=== PATIENT | female | born 1950 | race Caucasian/White ===

== ENCOUNTER 2016-10-04 20:31 | Inpatient (IN) ==
--- NOTE | 2016-10-04 20:43 | Emergency Department Note ---
Disposition Clinical Impression: Gastroenteritis, Dehydration, Near syncope Disposition: Admitted As Inpatient Condition: Fair Referrals: Ghulam Morrow MD [Primary Care Provider] - Forms: ED Satisfaction Letter Weakness HPI - General Chief complaint: ED Nausea/Vomiting/Diarrhea Stated complaint: general weakness, nausea Time Seen by Provider: 10/04/16 20:39 Source: patient, EMS Mode of arrival: EMS Limitations: no limitations Nursing Notes Reviewed: Yes Vital Signs Reviewed: Yes - History of Present Illness HPI Narrative: Patient reports she started this afternoon with some generalized weakness. She indicated she had 2 episodes of diarrhea without blood or mucus. She also has not had abdominal pain. At time of arrival here she is started persistent vomiting of food emesis. She reports a recent history of a urinary tract infection for which she started on a new antibiotic today. She denies any other change in her medicines or any reaction to medication approximating her current addition. She does report chills without fever. She denies chest pain , cough or shortness of breath. She has a generalized weakness and malaise but no dizziness. She denies any ill exposures or concerns for food borne illness. Her Accu-Chek is 109. Pt Subjective Complaint: generalized weakness/fatigue Onset (ago): hour(s) Duration: gradually worsening Location: generalized Migration: none Pain Severity: none Pain Scale: 0 Improves with: none Worsens with: none Context: new medication Associated symptoms: Reports: fever/chills (Chills), loss of appetite, nausea/ vomiting, other (Diarrhea). Denies: chest pain, confusion, dark stools, diaphoresis, dysuria, easy bruising, headaches, myalgias, rash, shortness of breath, syncope - Related Data Home Medications Medication Instructions Recorded Confirmed Citalopram [CeleXA] 20 mg PO DAILY 10/04/16 10/04/16 Lisinopril/Hydrochlorothiazide 1 each PO DAILY 10/04/16 10/04/16 [Zestoretic 10-12.5 mg Tablet] Metformin [Glucophage] 500 mg PO BID 10/04/16 10/04/16 Nitrofurantoin Macrocrystal 100 mg PO BID 10/04/16 10/04/16 [Nitrofurantoin] Omeprazole 20 mg PO DAILY 10/04/16 10/04/16 Rosuvastatin [Crestor] 20 mg PO 3XW 10/04/16 10/04/16 Allergies Allergy/AdvReac Type Severity Reaction Status Date / Time latex Allergy Hives Verified 10/04/16 20:33 Sulfa (Sulfonamide Allergy Hives Verified 10/04/16 20:33 Antibiotics) All systems ED: reviewed and negative except as stated. Past Medical History - Past Medical History Attestation: Yes The following information was validated with the patient. Source: patient, old records reviewed, nursing notes reviewed Medical history: Reports: diabetes, hyperlipidemia, hypertension Surgical history: Reports: no surgical history - Social History Smoking Status: Never smoker Alcohol use: Reports: none Drug use: Reports: none Physical Exam - General Limitations: physical limitation (Persistent vomiting) General appearance: alert, in distress - Head Head exam: atraumatic, normocephalic, normal inspection - Eye Eye exam: Present: normal appearance, PERRL, EOMI. Absent: scleral icterus, conjunctival injection - ENT ENT exam: normal exam, normal oropharynx, mucous membranes moist - Neck Neck exam: Present: normal inspection, full ROM, trachea midline - Chest Chest inspection: Present: normal inspection, symmetric chest wall rise - Respiratory Respiratory exam: Present: normal lung sounds bilaterally. Absent: respiratory distress, wheezes, prolonged expiratory phase - Cardiovascular Cardiovascular exam: Present: regular rate, normal rhythm, tachycardia, normal heart sounds - Abdominal Exam Abdominal exam: Present: soft, Non-Tender, normal bowel sounds. Absent: tenderness, distention, guarding, rebound, rigidity - Extremities Exam Extremities exam: Present: normal inspection, full ROM, normal capillary refill. Absent: tenderness, pedal edema - Expanded Lower Extremity Exam Neurovascular/Tendon exam: Present: normal capillary refill. Absent: motor deficit, sensory deficit, tendon deficit Gait: not tested/not observed - Back Exam Back exam: Present: normal inspection, full ROM. Absent: tenderness, CVA tenderness (R), CVA tenderness (L) - Neurological Exam Neurological exam: Present: alert, oriented X3. Absent: motor sensory deficit - Psychiatric Psychiatric exam: Present: normal affect, normal mood - Skin Skin exam: Present: warm, dry, intact, normal color. Absent: diaphoresis, pallor Course Course Narrative: 2200: All lab and EKG has been discussed with the patient and family. She still feels too weak to get up or to think about going home. Her heart rate is remaining at about 115 220. She is saturating well at 97%, respiratory rate is 16 and a blood pressure of 126/74 at rest. She has not been having further vomiting. I discussed care with Dr. Gomes who is agreeable with continued hydration for the night intravenously. Verbal orders have been obtained for her observation. Vital Signs Temperature 98.2 F 10/04/16 20:33 Pulse Rate 110 10/04/16 20:33 Respiratory Rate 21 10/04/16 20:33 Blood Pressure 122/66 10/04/16 20:33 O2 Sat by Pulse Oximetry 99 10/04/16 20:33 Temperature 98.2 F 10/04/16 20:34 Pulse Rate 118 10/04/16 21:24 Respiratory Rate 15 10/04/16 21:24 Blood Pressure 137/87 10/04/16 21:24 O2 Sat by Pulse Oximetry 98 10/04/16 21:24 Oxygen Delivery Oxygen Delivery Room Air Weakness - Differential Diagnosis Differential Diagnosis: Likely: anemia, hypoglycemia, dehydration, medication effect, metabolic - Medical Records Medical records reviewed: Yes I reviewed the patient's medical records. - Lab Data Lab results reviewed: Yes I reviewed the patient's lab results. Result diagrams: 10/04/16 20:51 10/04/16 20:51 Lab Results 10/04/16 10/04/16 10/04/16 Range/Units 20:51 20:51 20:51 WBC 9.3 (4.3-11.1) K/mcL RBC 4.22 (3.82-4.97) M/mcL Hgb 12.3 (11.5-15.4) g/dL Hct 36.8 (35.3-44.9) % MCV 87.2 (83.0-100.0) fL MCH 29.1 (28.0-33.3) pg MCHC 33.4 (31.6-35.5) g/dL RDW 12.8 (11.5-14.5) % Plt Count 222 (140-400) K/mcL MPV 9.9 (9.4-12.4) fL Immature Gran % 0.4 (0-4) % Seg Neutrophils % 92.5 % Lymphocytes % 4.9 % Monocytes % 1.8 % Eosinophils % 0.3 % Basophils % 0.1 % Neutrophils # 8.6 (1.6-8.9) K/mcL Lymphocytes # 0.5 L (0.6-4.6) K/mcL Monocytes # 0.2 (0.0-1.3) K/mcL Eosinophils # 0.0 (0.0-0.6) K/mcL Basophils # 0.0 (0.0-0.2) K/mcL Sodium 138 (136-145) mEq/L Potassium 3.7 (3.5-4.5) mEq/L Chloride 102 (98-109) mEq/L Carbon Dioxide 16 L (19-29) mEq/L BUN 23 H (7-20) mg/dL Creatinine 1.08 (0.57-1.11) mg/dL Est GFR ( Amer) > 60 (> 60) Est GFR (Non-Af Amer) 51 L (> 60) BUN/Creatinine Ratio 21 (6-26) Glucose 131 H (70-99) mg/dL Calculated Osmolality 291 (280-300) Calcium 9.6 (8.6-10.8) mg/dL Total Bilirubin 0.5 (0.2-1.2) mg/dL Direct Bilirubin 0.2 (0.0-0.5) mg/dL Indirect Bilirubin 0.3 (0.0-1.2) mg/dL AST 52 H (5-34) Units/L ALT 47 (0-55) Units/L Alkaline Phosphatase 78 (38-126) Units/L Troponin I 0.00 (0-0.03) ng/mL Serum Total Protein 7.3 (6.0-8.3) g/dL Albumin 4.2 (3.5-5.0) g/dL Globulin 3.1 (2.4-3.5) g/dL Albumin/Globulin Ratio 1.4 (1.1-2.2) - EKG Data EKG attestation: Yes I reviewed and interpreted this EKG. EKG shows normal: sinus rhythm, axis, intervals, QRS complexes, ST-T waves Rate: tachycardia (116) QRS morphology: poor R-wave progression Interpretation: no acute changes
[2016-10-04] MEDS ORDERED: 0.9 % Sodium Chloride 1,000 ML IVC ONE (20:44)
[2016-10-04] MEDS ORDERED: Ondansetron 4 MG/2 ML VIAL IVP ONE (20:44)
[2016-10-04] MEDS ORDERED: 0.9 % Sodium Chloride 1,000 ML IVC SCH (20:45)
[2016-10-04 20:57] LABS: Basophils % 0.1 %; Eosinophils % 0.3 %; Hematocrit 36.8 % (35.3-44.9); Hemoglobin 12.3 g/dL (11.5-15.4); Immature Granulocytes % 0.4 % (0-4); Lymphocytes # 0.5 K/mcL (0.6-4.6); Lymphocytes % 4.9 %; Mean Corpuscular HGB Conc 33.4 g/dL (31.6-35.5); Mean Corpuscular Hemoglobin 29.1 pg (28.0-33.3); Mean Corpuscular Volume 87.2 fL (83.0-100.0); Mean Platelet Volume 9.9 fL (9.4-12.4); Monocytes # 0.2 K/mcL (0.0-1.3); Monocytes % 1.8 %; Neutrophils # 8.6 K/mcL (1.6-8.9); Platelet Count 222 K/mcL (140-400); Red Blood Count 4.22 M/mcL (3.82-4.97); Red Cell Distribution Width 12.8 % (11.5-14.5); Segmented Neutrophils % 92.5 %
[2016-10-04 21:20] LABS: Alanine Aminotransferase 47 Units/L (0-55); Albumin 4.2 g/dL (3.5-5.0); Albumin/Globulin Ratio 1.4 (1.1-2.2); Alkaline Phosphatase 78 Units/L (38-126); Aspartate Amino Transferase 52 Units/L (5-34); BUN/Creatinine Ratio 21 (6-26); Bilirubin,Direct 0.2 mg/dL (0.0-0.5); Bilirubin,Indirect 0.3 mg/dL (0.0-1.2); Bilirubin,Total 0.5 mg/dL (0.2-1.2); Blood Urea Nitrogen 23 mg/dL (7-20); Calcium 9.6 mg/dL (8.6-10.8); Carbon Dioxide 16 mEq/L (19-29); Chloride 102 mEq/L (98-109); Globulin 3.1 g/dL (2.4-3.5); Glucose 131 mg/dL (70-99); Osmolality,Calculated 291 (280-300); Potassium 3.7 mEq/L (3.5-4.5); Sodium 138 mEq/L (136-145); Total Protein 7.3 g/dL (6.0-8.3); eGFR For African Americans > 60 (> 60); eGFR For Non-African Americans 51 (> 60)
[2016-10-04] MEDS ORDERED: Naloxone 0.4 MG/ML INJ IVP PRN (23:31)
[2016-10-04] MEDS ORDERED: Ondansetron 4 MG/2 ML VIAL IVP PRN (23:31)
[2016-10-04] MEDS ORDERED: Ibuprofen 400 MG TABLET PO PRN (23:31)
[2016-10-05] MEDS: 0.9 % Sodium Chloride 1,000 ML IVC SCH ×2 (00:39→07:36)
[2016-10-05] MEDS: Acetaminophen 325 MG TABLET PO PRN ×2 (06:32→19:00)
[2016-10-05] MEDS: *HR* Metformin 500 MG TABLET PO SCH ×2 (07:37→17:03)
[2016-10-05] MEDS ORDERED: Nitrofurantoin (BID) 100 MG CAPSULE PO SCH (09:00)
--- NOTE | 2016-10-05 12:11 | Internal Med History&Physical ---
Date of Encounter: 10/05/16 Time of Encounter: 11:35 Assessment and Plan (1) Weakness Current visit: Yes Status: Acute Suspect multifactorial in origin. Will hold lisinopril/HCTZ and continue IV fluids. We will do orthostatic vital signs in a.m. Recheck labs in a.m. (2) Azotemia Current visit: Yes Status: Acute As above (3) DM type 2 (diabetes mellitus, type 2) Current visit: Yes Status: Chronic Hemoglobin A1c was 6.0% on 07/24/2016. Continue Glucophage and Accu-Cheks with SSI. Qualifiers: Diabetes mellitus complication status: without complication Diabetes mellitus mcfp insulin use: without mcfp use Qualified Code(s): E11.9 - Type 2 diabetes mellitus without complications (4) Neutrophilia Current visit: Yes Status: Acute We will recheck labs in a.m. Internal Medicine - H&P: HPI Chief complaint: Weakness Admitted From: Home Plans for Post Hospital Care: Home History of present illness: Ms. Meredith is a 66 year old female who came to emergency room after she developed blurry vision while driving. She reports also experiencing a sensation of heaviness in her arms and shoulder. There was nausea but no vomiting. There was no pain or dyspnea associated. She did not feel syncopal or near syncopal. She was evaluated in emergency room and admitted to [facility] floor for ongoing care needs. She denies previous similar episodes. Her cardiovascular history significant for hypertension. She reports her lisinopril/HCTZ medication was doubled on September 25 because of inadequate blood pressure control. She denies RI heart failure DVT or pulmonary embolus. She denies angina or anginal equivalents on exertion. Her neurologic history is negative for large distribution strokes or seizures. She denies diplopia or other neurologic symptoms occurring yesterday. Past Med Surg Social Fam HX - Past Medical History Medical history: diabetes, hyperlipidemia, hypertension Psychiatric history: anxiety - Past Surgical History Surgical History: no surgical history - Social History Smoking Status: Never smoker Smokeless Tobacco Status: No Alcohol use: none Drug use: none - Family History Mother Living Status: Still Living Hx Family Cardiac Disorders: Yes (high blood pressure) Hx Family Endocrine Disorder: Yes (diabetes) Internal Medicine - H&P: Meds Citalopram [CeleXA] 20 mg PO DAILY 10/04/16 [History] Lisinopril/Hydrochlorothiazide [Zestoretic 10-12.5 mg Tablet] 1 each PO DAILY [History] Metformin [Glucophage] 500 mg PO BID 10/04/16 [History] Nitrofurantoin Macrocrystal [Nitrofurantoin] 100 mg PO BID 10/04/16 [History] Omeprazole 20 mg PO DAILY 10/04/16 [History] Rosuvastatin [Crestor] 20 mg PO 3XW 10/04/16 [History] Allergies latex Allergy (Verified 10/04/16 20:33) Hives Sulfa (Sulfonamide Antibiotics) Allergy (Verified 10/04/16 20:33) Hives All Systems PM: A 10-system review of systems was performed and is negative for pertinent findings except as documented above in the HPI. Review of systems: Gen.: She states her weight has been stable the past few months Cardiovascular: As per history of present illness Respiratory: She smoked very infrequently several years ago. She denies chronic lung disease GI: She denies disorders of her liver gallbladder or exocrine pancreas : She denies hematuria dysuria or kidney stones Neurologic: As per history of present illness Endocrine: She was diagnosed with DM 2 approximately 2009. She has hyperlipidemia but denies thyroid disease Hematology/oncology: She denies blood disorders cancers or anemia Psychiatric: She has anxiety but denies depression or other mental health issues [place] skeletal: She has DJD but no known gout or other bone joint or muscle disorders. - Constitutional Vitals: Temp Pulse Resp BP Pulse Ox 99.0 F 104 16 133/81 96 10/05/16 11:47 10/05/16 11:47 10/05/16 11:47 10/05/16 11:47 10/05/16 11:47 Exam: Gen.: She is a well-developed well-nourished female who appears in no severe distress at present time. HEENT: Head is atraumatic and normocephalic. Eyes: EOMI. There is no scleral icterus. Mouth: Mucosa is moist. Neck: Supple and nontender. There is no thyromegaly or adenopathy noted. Heart: Regular without murmurs gallops or ectopics. Lungs: No wheezes or crackles are heard. Abdomen: Soft and nontender. No masses or guarding are noted. Extremities: There is no cyanosis edema or clubbing noted. Dorsalis pedis and posttibial pulses are trace to 1+ palpable bilaterally. Neurologic: Mental status: She is talkative and a good historian. Cranial nerves: Smile is symmetric. Forehead wrinkles bilaterally. Tongue protrudes midline. EOMI. Motor: There is no pronator drift. Cerebellar: Finger to nose is intact bilaterally. Skin: Warm and dry Internal Med - H&P Results - Labs CBC & Chem 7: 10/04/16 20:51 10/04/16 20:51
[2016-10-05] MEDS: 0.45 % Sodium Chloride w/KCl 20 MEQ/1,000 ML MLS IVC SCH ×2 (14:07→22:25)
[2016-10-05] MEDS: *HR* HYDROcodone/Acet 5/325 mg TABLET PO PRN ×2 (14:13→19:27)
[2016-10-05] MEDS ORDERED: Magnesium Sulfate 1 GM in D5% in Water 100 ML IVPB ONE (19:24)
[2016-10-05 22:31] LABS: Bilirubin,Urine Negative (Negative); Blood,Urine Negative (Negative); Clarity,Urine Clear (Clear); Color,Urine Yellow (Yellow); Glucose,Urine (UA) Normal (Normal); Ketones,Urine 15 mg/dL (Negative); Leukocyte Esterase,Urine Negative (Negative); Nitrite,Urine Negative (Negative); Protein,Urine Negative (Neg-Trace); Urobilinogen,Urine Normal (Normal)
[2016-10-05] MEDS: *HR* Enoxaparin 40 MG/0.4 ML SYRINGE SQ SCH (22:42)
[2016-10-05] MEDS: CefTRIAXone 1,000 MG in D5% in Water (Mini-Bag+) 100 ML IVPB SCH (23:55)
[2016-10-06] MEDS: *HR* Enoxaparin 40 MG/0.4 ML SYRINGE SQ SCH (05:46)
[2016-10-06 06:27] LABS: Basophils % 0.2 %; Eosinophils % 0.2 %; Hematocrit 33.4 % (35.3-44.9); Hemoglobin 11.1 g/dL (11.5-15.4); Immature Granulocytes % 0.5 % (0-4); Lymphocytes # 0.4 K/mcL (0.6-4.6); Lymphocytes % 8.4 %; Mean Corpuscular HGB Conc 33.2 g/dL (31.6-35.5); Mean Corpuscular Hemoglobin 29.1 pg (28.0-33.3); Mean Corpuscular Volume 87.7 fL (83.0-100.0); Mean Platelet Volume 11.3 fL (9.4-12.4); Monocytes # 0.2 K/mcL (0.0-1.3); Monocytes % 4.3 %; Neutrophils # 3.8 K/mcL (1.6-8.9); Platelet Count 177 K/mcL (140-400); Red Blood Count 3.81 M/mcL (3.82-4.97); Red Cell Distribution Width 13.2 % (11.5-14.5); Segmented Neutrophils % 86.4 %
[2016-10-06 06:40] LABS: BUN/Creatinine Ratio 14 (6-26); Blood Urea Nitrogen 11 mg/dL (7-20); Calcium 8.6 mg/dL (8.6-10.8); Carbon Dioxide 20 mEq/L (19-29); Chloride 104 mEq/L (98-109); Glucose 115 mg/dL (70-99); Osmolality,Calculated 280 (280-300); Potassium 4.4 mEq/L (3.5-4.5); Sodium 135 mEq/L (136-145); eGFR For African Americans > 60 (> 60); eGFR For Non-African Americans > 60 (> 60)
[2016-10-06] MEDS: *HR* Metformin 500 MG TABLET PO SCH ×2 (08:17→16:13)
[2016-10-06] MEDS: 0.45 % Sodium Chloride w/KCl 20 MEQ/1,000 ML MLS IVC SCH ×3 (08:18→20:11)
[2016-10-06] MEDS: CefTRIAXone 1,000 MG in D5% in Water (Mini-Bag+) 100 ML IVPB SCH (08:19)
[2016-10-06] MEDS: *HR* HYDROcodone/Acet 5/325 mg TABLET PO PRN ×3 (08:22→17:22)
--- NOTE | 2016-10-06 09:24 | Electrocardiograph Report ---
[place] [id number] Test Date: 2016-10-04 Pat Name: Shayna Meredith Department: 9201 Room: [facility] Gender: F Sap Portal Developer: [id number] : 1950 Requested By: Aden Pimentel Order Number: [id number] Reading MD: Dejon Genao MD Measurements Intervals [place] Rate: 116 P: 42 WI: 154 QRS: -8 QRSD: 76 T: 43 QT: 324 QTc: 393 Interpretive Statements SINUS TACHYCARDIA Poor R wave progression INFERIOR MYOCARDIAL INFARCTION, PROBABLY OLD Electronically Signed On 10-06-2016 9:22:26 EDT by Dejon Genao MD
--- NOTE | 2016-10-06 10:01 | Internal Med Progress Note ---
Date of Encounter: 10/06/16 Time of Encounter: 09:45 - Assessment and plan (1) Weakness Current Visit: Yes Status: Acute Assessment and plan: October 06. Labs are overall improved. We will treat for pneumonia and continue to monitor progress. (2) Azotemia Current Visit: Yes Status: Acute Assessment and plan: October 06. Resolved. Remain off lisinopril/HCTZ and continue IV fluids. (3) DM type 2 (diabetes mellitus, type 2) Current Visit: Yes Status: Chronic Assessment and plan: October 06. Hemoglobin A1c was 6.0% on 07/24/2016. Accu-Cheks are acceptable. Continue Glucophage and Accu-Cheks with SSI. Qualifiers: Diabetes mellitus complication status: without complication Diabetes mellitus custodial insulin use: without intermediate card tender use Qualified Code(s): E11.9 - Type 2 diabetes mellitus without complications (4) Pneumonia Current Visit: Yes Status: Acute Assessment and plan: October 06. Continue Rocephin. We will add Zithromax and lactobacillus. Recheck labs in a.m. Qualifiers: Pneumonia type: due to unspecified organism Laterality: right Lung location: lower lobe of lung Qualified Code(s): J18.1 - Lobar pneumonia, unspecified organism - Subjective Interval history: October 06. She had fever spike last evening. She has persistent nausea with some vomiting today as well as a headache. Chest x-rays returned showing possible right lower lobe infiltrate. UA was unremarkable. - Constitutional Vitals: Temp Pulse Resp BP Pulse Ox 99.9 F H 103 16 133/82 95 10/06/16 07:42 10/06/16 07:42 10/06/16 07:42 10/06/16 07:42 10/06/16 07:42 Exam: She is lying in bed and appears in minimal distress at present time. Her affect is overall cheerful. I reviewed her medications and lab and x-ray studies. Internal Medicine: Result - Labs CBC & Chem 7: 10/06/16 04:43 10/06/16 04:43 Labs: Short CBC 10/06/16 Range/Units 04:43 WBC 4.4 D (4.3-11.1) K/mcL Hgb 11.1 L (11.5-15.4) g/dL Hct 33.4 L (35.3-44.9) % Plt Count 177 (140-400) K/mcL Neutrophils # 3.8 (1.6-8.9) K/mcL BMP 10/06/16 04:43 Sodium 135 L Potassium 4.4 Chloride 104 Carbon Dioxide 20 BUN 11 D Creatinine 0.80 Glucose 115 H Calcium 8.6 Urine 10/05/16 Range/Units 22:24 Urine Color Yellow (Yellow) Urine Clarity Clear (Clear) Urine pH 5.0 (5.0-8.0) pH Units Ur Specific [place] 1.020 (1.010-1.025) Urine Protein Negative (Neg-Trace) mg/dL Urine Glucose (UA) Normal (Normal) mg/dL Consult Discharge Plan - Plan Referrals: Ghulam Morrow MD [Primary Care Provider] - 1 week
[2016-10-06] MEDS ORDERED: Azithromycin 500 MG in D5% in Water 250 ML IVPB SCH (11:00)
[2016-10-06] MEDS: Lactobacillus 1 EACH CAP.SPRINK PO SCH (20:11)
[2016-10-07] MEDS: *HR* Enoxaparin 40 MG/0.4 ML SYRINGE SQ SCH (05:39)
[2016-10-07] MEDS: 0.45 % Sodium Chloride w/KCl 20 MEQ/1,000 ML MLS IVC SCH (05:44)
[2016-10-07 07:03] LABS: BUN/Creatinine Ratio 12 (6-26); Blood Urea Nitrogen 9 mg/dL (7-20); Calcium 8.8 mg/dL (8.6-10.8); Carbon Dioxide 21 mEq/L (19-29); Chloride 106 mEq/L (98-109); Glucose 88 mg/dL (70-99); Osmolality,Calculated 282 (280-300); Potassium 4.5 mEq/L (3.5-4.5); Sodium 137 mEq/L (136-145); eGFR For African Americans > 60 (> 60); eGFR For Non-African Americans > 60 (> 60)
[2016-10-07 07:04] LABS: Basophils % 0.3 %; Eosinophils # 0.1 K/mcL (0.0-0.6); Hematocrit 30.7 % (35.3-44.9); Hemoglobin 10.2 g/dL (11.5-15.4); Immature Granulocytes % 0.3 % (0-4); Lymphocytes # 1.2 K/mcL (0.6-4.6); Lymphocytes % 29.3 %; Mean Corpuscular HGB Conc 33.2 g/dL (31.6-35.5); Mean Corpuscular Volume 87.2 fL (83.0-100.0); Mean Platelet Volume 10.7 fL (9.4-12.4); Monocytes # 0.4 K/mcL (0.0-1.3); Monocytes % 9.6 %; Neutrophils # 2.3 K/mcL (1.6-8.9); Platelet Count 189 K/mcL (140-400); Red Blood Count 3.52 M/mcL (3.82-4.97); Red Cell Distribution Width 13.2 % (11.5-14.5); Segmented Neutrophils % 57.5 %
[2016-10-07] MEDS: Lactobacillus 1 EACH CAP.SPRINK PO SCH (07:52)
[2016-10-07] MEDS: CefTRIAXone 1,000 MG in D5% in Water (Mini-Bag+) 100 ML IVPB SCH (07:52)
[2016-10-07] MEDS: *HR* Metformin 500 MG TABLET PO SCH (07:52)
--- NOTE | 2016-10-07 09:18 | Discharge Summary ---
Date of Encounter: 10/07/16 Time of Encounter: 09:05 - Discharge Diagnosis (1) Pneumonia Priority: Primary Status: Acute Qualifiers: Pneumonia type: due to unspecified organism Laterality: right Lung location: lower lobe of lung Qualified Code(s): J18.1 - Lobar pneumonia, unspecified organism (2) Weakness Priority: Secondary Status: Acute (3) Azotemia Priority: Secondary Status: Resolved (4) DM type 2 (diabetes mellitus, type 2) Priority: Secondary Status: Chronic Qualifiers: Diabetes mellitus complication status: without complication Diabetes mellitus usp insulin use: without usp use Qualified Code(s): E11.9 - Type 2 diabetes mellitus without complications - Discharge Medications Prescriptions: Cefuroxime PO [Ceftin] 500 mg PO Q12HR #6 tablet Azithromycin [Zithromax] 250 mg PO DAILY #3 tablet Lactobacillus [Culturelle] 1 each PO BID #6 cap.sprink Home Medications: Citalopram [CeleXA] 20 mg PO DAILY 10/04/16 [History] Metformin [Glucophage] 500 mg PO BID 10/04/16 [History] Omeprazole 20 mg PO DAILY 10/04/16 [History] Rosuvastatin [Crestor] 20 mg PO 3XW 10/04/16 [History] Azithromycin [Zithromax] 250 mg PO DAILY #3 tablet 10/07/16 [Rx] Cefuroxime PO [Ceftin] 500 mg PO Q12HR #6 tablet 10/07/16 [Rx] Lactobacillus [Culturelle] 1 each PO BID #6 cap.sprink 10/07/16 [Rx] Allergies/Adverse Reactions: Allergies latex Allergy (Verified 10/04/16 20:33) Hives Sulfa (Sulfonamide Antibiotics) Allergy (Verified 10/04/16 20:33) Hives Date of admission: 10/05/16 19:29 Primary care physician: Ghulam Morrow MD - Patient Status Disposition: Home, Self-Care Condition: Fair Overall status at discharge: patient is progressing back to baseline - Discharge Instructions Follow Up With: Ghulam Morrow MD [Primary Care Provider] - 1 week - Diet and Activity Activity: resume usual activities as tolerated Diet: advance to your usual diet Hospital course: Ms. Meredith is a 66 year old female who came to emergency room after she developed blurry vision while driving. She reports also experiencing a sensation of heaviness in her arms and shoulder. There was nausea but no vomiting. There was no pain or dyspnea associated. She did not feel syncopal or near syncopal. She was evaluated in emergency room and admitted to [facility] for ongoing care needs. Initial orders were written by the emergency room physician. I saw her on October 05 and performed the history and physical. The lisinopril/HCTZ was discontinued and she was given IV fluids. Her azotemia resolved with BUN and creatinine being 9 and 0.78 respectively the day of discharge. Magnesium level returned low at 1.0. I felt this was due to the lisinopril/ HCTZ. The medication was discontinued and she was given IV magnesium sulfate and her magnesium level normalized 1.6 on October 06. Her blood pressure remained stable off lisinopril/HCTZ. She will remain off this at discharge. Chest x-ray showed probable right lower lobe infiltrate the evening of October 05. She was started on Rocephin and Zithromax. She will continue with Ceftin and Zithromax with lactobacillus 3 additional days after discharge. The left shift of the WBC differential resolved by the time of discharge. On October 07 she felt much improved and stable for discharge home. She will follow with her PCP Dr. Ghulam Morrow within 1 week. - Time Spent with Patient Total time spent providing and/or coordinating discharge services: - Constitutional Vitals: Temp Pulse Resp BP Pulse Ox 98.3 F 95 18 142/83 95 10/07/16 07:11 10/07/16 07:11 10/07/16 07:11 10/07/16 07:11 10/07/16 07:11
[2016-10-07 11:03] VITALS: BP 142/83
== END 2016-10-07 10:00 | disposition home or self-care (01) | DRG 195 ==
LOC: EMEROOPIK 20:31 → INPPIK 20:31
PROVIDERS: ADMIT Internal Medicine; ATTEND Internal Medicine